=== PATIENT | female | born 1945 | race Caucasian/White ===

== ENCOUNTER 2018-06-03 09:19 | Day surgery (SDC) | payer MEDICARE, OTHER ==
[~2018-06-03] VITALS: Ht 165.1 cm; Wt 90.7 kg
--- NOTE | ~2018-06-03 | OP ---
PATIENT NAME: YOVANI FAN MEDICAL RECORD: [id number] :47 LOCATION:[facility] ADMISSION DATE: SURGEON: ROMIE KIRK MD DATE OF OPERATION: 06/03/2018 REFERRED BY: Dr. Augustus Estrada of [place]. PREOPERATIVE DIAGNOSES: End-stage renal disease and dependence on hemodialysis and thrombophilia with history of multiple dialysis access failures. POSTOPERATIVE DIAGNOSES: End-stage renal disease and dependence on hemodialysis and thrombophilia with history of multiple dialysis access failures. OPERATION PERFORMED: Implantation of left arm brachial artery to basilic vein Artegraft AV graft. SURGEON: Romie Kirk MD ANESTHESIA: Regional nerve block plus general with LMA per MICROELECTRONICS TECHNICIAN. PREOPERATIVE NOTE: Ms. Fan is a very nice lady, 72-year-old white female from [place]. She has diabetes and coronary artery disease and renal failure and also has a problem with chronic hypotension and I think uncharacterized thrombophilia with a history of numerous dialysis access failures. I saw her recently for Dr. Estrada. She needs long-term dialysis access, but has very small vessels and seemingly little to offer at this point. I suggested that the left arm, which is I think the best candidate, could be examined in the operating room with ultrasound under anesthesia, which would cause venodilation and if at all possible, perhaps a fistula, may even a brachiobasilic AV fistula could be created. Otherwise, a prosthetic graft implanted in the left upper arm, but then she has had very early failures with PTFE grafts. I suggested possibly a bovine xenograft or Artegraft bovine carotid artery product. DESCRIPTION OF PROCEDURE: Under regional block anesthesia, the patient was placed in supine position, prepped and draped in a sterile manner. I determined that her regional block was not adequate in order for operation in the upper arm to be performed and so she was given general anesthesia with an LMA by the MICROELECTRONICS TECHNICIAN. I examined her with ultrasound and found that her vessels were unsuitable to creation of a fistula. I found that the arterial and venous anastomoses from a previous forearm loop AV graft were in the distal upper arm above the antecubital space and the vessels were just small, especially the basilic vein and cephalic vein, but even the axillary vein is very small. The axillary vein is probably 5 mm in diameter most. The basilic vein is on the order of 3-4 mm in diameter. The brachial artery in the upper arm above the elbow is perhaps 3 mm in diameter. I decided to go ahead and try a graft and I made 2 incisions, one proximally and exposed the basilic vein, which was controlled with Silastic loops and I exposed the brachial artery just above an old arterial anastomosis. The artery was controlled with loops and occluded with loops when needed. I chose a 6-mm diameter Artegraft prosthesis. It was appropriately rinsed and prepared for use. The basilic vein was opened and the graft anastomosed end-to-side end of graft to side of vein, making an anastomosis approximately 8 mm or even 10 mm in diameter. This was done with a running 7-0 Prolene. The graft was then placed in a very superficial subcutaneous tunnel in a rainbow type configuration and anastomosed to the side of the artery, also end of vein to side of artery. This was done with 7-0 Prolene. Both of the anastomoses OPERATIVE REPORT [id number] FANYOVANI were close to the 90-degree angles with the large compliant prosthetic. The vessels were flushed with heparinized saline, but the patient was not systemically anticoagulated. The suture lines were treated with surgical sealant and hemostasis was noted at both sites immediately with release of the occluding clamps and loops. There was excellent flow immediately established in the new AV graft with continuous pulsatile Doppler flow. There was excellent flow preserved in the brachial artery distal to the arterial anastomosis. I also demonstrated preservation of flow in the radial artery and in the ulnar artery at the wrist by Doppler examination. The Doppler flow signals are diminished compared to baseline before the new graft was implanted, but I believe that the hand has a very adequate arterial blood supply. It was pink and warm at the end of the operation as well. The wounds were irrigated with Ancef and gentamicin solution. Hemostasis in the upper wound was not truly adequate. An additional time was taken to obtain hemostasis and I used some Fibrillar within the wound, which still did not control the persistent minor oozing and so I left a 10-mm flat fluted closed suction drain, which was brought out through a separate track by a trocar and attached to a suction bulb. The wounds were closed with interrupted inverted 3-0 Vicryl and running intracuticular 4-0 Stratafix suture. The incisions were sealed with Dermabond glue and dressed with Maxorb Ag, Tegaderm, and Cavilon skin prep. The drain exit site was dressed with a chlorhexidine Biopatch and a Primapore dressing. The patient was awakened and taken to the recovery room. Blood loss during the operation was about 25 cc, perhaps a little more. Certainly, none was replaced. All sponges, instruments and needles were accounted for. One drain was used as I described and there was no surgical specimen submitted for histopathology. PLAN: The patient will go home with her daughter this evening. I believe she will be going back to [place]. She is given a prescription for tramadol 50 mg, she can take one or if needed two at 4-hour intervals p.r.n. for pain, she was given 20 of those and she is also given 10 Ativan 0.5 mg to take 1 b.i.d. p.r.n. pain and anxiety. These meds were at her daughter's request from prior experience. I will see her in my office on Wednesday for dressing change. Hopefully, we will be able to remove her drain at that time also. In future, it is possible that the graft may stay open, especially if were aggressive with anticoagulants and antiplatelet drugs and that she will come to an angiogram, which demonstrates the small vein or stenosis of the basilic and axillary veins. It might be very possible to more or less extent this graft with endovascular stenting up to a larger central vein, larger proximal axillary vein. TRANSINT:[id number] Voice Confirmation ID: [id number] DOCUMENT ID: [id number] CC: Dr. Augustus Estrada [phone] [facility] [place] [phone] OPERATIVE REPORT [id number] YOVANI FAN, ROMIE JOY at 1606 CC: DR. AUGUSTUS ESTRADA and [facility] [place] [phone] DICTATION DATE: 06/03/18 1720 HOUSE PAINTER HELPER: 06/03/18 1813 [facility] 06/03/18 [facility] [address] [place] [address]
[2018-06-03 10:04] LABS: APTT 26.8 SECONDS (22.8-39.4)
[2018-06-03 10:06] LABS: INR 0.98 (0.85-1.17); PROTIME 12.6 SECONDS (11.6-15.0)
[2018-06-03 10:07] LABS: BASOPHILS 0.6 % (0-2); HEMATOCRIT 39.3 % (36.0-48.0); HEMOGLOBIN 13.3 g/dL (12-16); IMMATURE GRANULOCYTES 0.2 % (0-5); LYMPHOCYTES 24.8 % (15-50); MCH 32.7 pg (26.0-34.0); MCHC 33.8 g/dL (31.0-37.0); MCV 96.6 fL (80.0-100.0); MEAN PLATELET VOLUME 9.5 fL (7.4-10.4); MONOCYTES 7.8 % (2-11); NEUTROPHILS 63.6 % (40-80); PLATELET COUNT 215 10x3/uL (130-400); RBC 4.07 10x6/uL (4.00-5.40); RDW 13.7 % (11.5-14.5); WBC 10.1 10x3/uL (4.8-10.8)
[2018-06-03 10:11] LABS: ANION GAP 14.5 mmol/L (8-16); CALCIUM 9.2 mg/dL (8.5-10.1); CARBON DIOXIDE 26.8 mmol/L (21.0-32.0); CREATININE - SERUM 4.2 mg/dL (0.6-1.3); POTASSIUM - SERUM 4.3 mmol/L (3.5-5.1)
[2018-06-03] MEDS ORDERED: RENA-VITE TABL0.8 MG PO (11:46)
[2018-06-03] MEDS ORDERED: NEURONTIN600 MG PO (11:47)
[2018-06-03] MEDS ORDERED: PRAVACHOL40 MG PO (11:47)
[2018-06-03] MEDS ORDERED: CYTOMEL5 MCG PO (11:48)
[2018-06-03] MEDS ORDERED: TENORMIN25 MG PO (11:48)
[2018-06-03] MEDS ORDERED: TRAZODONE HCL150 MG PO (11:49)
[2018-06-03] MEDS ORDERED: CELEXA40 MG PO (11:49)
[2018-06-03] MEDS ORDERED: AMBIEN10 MG (11:49)
[2018-06-03 12:00] VITALS: BP 111/45; Ht 165.1 cm; Wt 90.7 kg
[2018-06-03] MEDS ORDERED: ATIVAN0.5 MG PO (16:36)
[2018-06-03] MEDS ORDERED: ULTRAM50 MG PO (16:37)
== END 2018-06-03 18:45 | disposition home or self-care (01) ==
LOC: D.OPS 09:19 → EDBD 09:19 → D.OPS 10:35
PROVIDERS: Surgery
DX: E11.22 Type 2 diabetes mellitus with diabetic chronic kidney disease (principal); N18.6 End stage renal disease; Z99.2 Dependence on renal dialysis; D68.59 Other primary thrombophilia; I25.10 Atherosclerotic heart disease of native coronary artery without angina pectoris; Z01.812 Encounter for preprocedural laboratory examination

== ENCOUNTER 2018-06-21 07:04 | Day surgery (SDC) | payer MEDICARE, OTHER ==
[~2018-06-21] VITALS: Ht 165.1 cm; Wt 91.6 kg
--- NOTE | ~2018-06-21 | OP ---
PATIENT NAME: YOVANI FAN MEDICAL RECORD: [id number] :47 LOCATION:[facility] ADMISSION DATE: SURGEON: ROMIE KIRK MD DATE OF OPERATION: 06/21/2018 REFERRED BY: Dr. Augustus Estrada in [place]. PREOPERATIVE DIAGNOSIS: Thrombosis of recently implanted left brachiobasilic arteriovenous graft. POSTOPERATIVE DIAGNOSIS: Thrombosis of recently implanted left brachiobasilic arteriovenous graft. OPERATION PERFORMED: Ultrasound-guided access and fistulogram, AngioJet mechanical thrombolysis, balloon angioplasty of venous anastomosis and implantation of Viabahn stents in the venous anastomosis and venous outflow using 2 Viabahn stents each 8-mm in diameter, one 10 cm long and the other 5 cm long. PREOPERATIVE NOTE: Ms. Fan is a very pleasant 72-year-old white female patient who has had dialysis access failures. She was referred to me by Dr. Estrada of [place]. I recently implanted a Propaten PTFE AV graft between a very small brachial artery at the antecubital level or just above that to the proximal basilic vein and at that time noted very small arteries and a very small vein. She has now thrombosed this AV graft before it was ever used. She is still catheter dependent. She has returned to the operating room as an outpatient today to try to reopen it and likely place stents in the venous outflow tract. DESCRIPTION OF PROCEDURE: Under general anesthesia with an LMA per POLICE SURGEON, the patient is prepped and draped in a sterile manner. The graft was accessed with ultrasound guidance in an antegrade and retrograde direction with a 6-Fijian introducers facing and the distal introducer was later replaced with an 8-Fijian to accommodate the Viabahn stents. A Glidewire was passed proximally and an AngioJet catheter used to lyse thrombus in the body of the graft and venous anastomosis and basilic vein. A pullback venogram was then performed, which revealed a dramatic change in caliber at the apparent confluence with the basilic vein. Basilic vein itself from that point on laterally to the graft anastomosis was quite small. I dilated all this with the 8-mm diameter balloon and systemically heparinized the patient Contrast injection then demonstrated a very irregular venous anastomosis and the stenotic venous outflow tract. This was then all stented with two overlapping Viabahn 8-mm diameter stents, one 10 cm and the other 5 cm long. These were fully expanded with the angioplasty balloon and repeat contrast injection revealed a suitable appearance angiographically to the body of the graft and venous outflow. The arterial end was then cleared of thrombus with the AngioJet and Glidewire combination. The Glidewire was advanced into the proximal brachial artery and a glide catheter was then advanced and a selective brachial artery arteriogram performed, which revealed a very, very small vessels and thrombus in the arterial anastomosis. I used the AngioJet as well as a Avi embolectomy catheter and a 6-mm diameter angioplasty balloon to impact organized thrombus in this area and try to free what appeared to be a mobile, but attached a clot in the arterial anastomosis. This was eventually successful in free flow and the graft was restored. The patient's heparin was not reversed. The introducers were removed and hemostasis obtained at those points with [id number] 3-0 Vicryl and gentle pressure. OPERATIVE REPORT [id number] YOVANI FAN Sterile dressings were applied and the patient awakened and taken to the recovery room in stable condition. Blood loss during the operation was about 50 cc, none was replaced intraoperatively. All sponges, instruments and needles were accounted for. No drain was used. PLAN: I think the patient will need to be on Plavix and we will start her on that with a prescription given today, she can start the medication tomorrow. I believe that she can probably start to have this graft accessed and use for at least a single 17-gauge needle dialysis within the next week or two. I will have her come back to see me in my office in about 2 to 3 weeks. I have given her a prescription for Plavix 75 mg one daily times 30 with 5 refills with the intention that if her graft remains patent she should stay on the antiplatelet drug. TRANSINT:[id number] Voice Confirmation ID: [id number] DOCUMENT ID: [id number] CC: Dr. Augustus Estrada [phone] ROMIE KIRK MD at 3415 CC: DR. AUGUSTUS ESTRADA [phone] DICTATION DATE: 06/21/18 1458 CAR CLERK PULLMAN: 06/21/18 1554 [facility] 06/21/18 [facility] [address] [place] [address]
[~2018-06-21 07:04] MED LIST: AMBIEN10 MG; ATIVAN0.5 MG PO; CELEXA40 MG PO; CYTOMEL5 MCG PO; NEURONTIN600 MG PO; PRAVACHOL40 MG PO; RENA-VITE TABL0.8 MG PO; TENORMIN25 MG PO; TRAZODONE HCL150 MG PO; ULTRAM50 MG PO
[2018-06-21 07:29] LABS: BASOPHILS 0.6 % (0-2); EOSINOPHILS 3.9 % (0-7); HEMATOCRIT 37.4 % (36.0-48.0); HEMOGLOBIN 12.3 g/dL (12-16); IMMATURE GRANULOCYTES 0.3 % (0-5); LYMPHOCYTES 24.2 % (15-50); MCH 32.5 pg (26.0-34.0); MCHC 32.9 g/dL (31.0-37.0); MCV 98.7 fL (80.0-100.0); MEAN PLATELET VOLUME 9.2 fL (7.4-10.4); MONOCYTES 9.7 % (2-11); NEUTROPHILS 61.3 % (40-80); PLATELET COUNT 250 10x3/uL (130-400); RBC 3.79 10x6/uL (4.00-5.40); RDW 14.2 % (11.5-14.5); WBC 10.1 10x3/uL (4.8-10.8)
[2018-06-21 07:44] LABS: ANION GAP 11.1 mmol/L (8-16); CALCIUM 9.1 mg/dL (8.5-10.1); CARBON DIOXIDE 29.9 mmol/L (21.0-32.0); CREATININE - SERUM 3.8 mg/dL (0.6-1.3)
[2018-06-21 07:47] LABS: APTT 26.7 SECONDS (22.8-39.4); INR 0.97 (0.85-1.17); PROTIME 12.5 SECONDS (11.6-15.0)
[2018-06-21 09:27] VITALS: Ht 165.1 cm; Wt 91.6 kg
[2018-06-21] MEDS ORDERED: PLAVIX75 MG PO (14:41)
== END 2018-06-21 16:55 | disposition home or self-care (01) ==
LOC: D.OPS 07:04
PROVIDERS: Internal Medicine Nephrology
DX: T82.868A Thrombosis due to vascular prosthetic devices, implants and grafts, initial encounter (principal); Z01.812 Encounter for preprocedural laboratory examination